=== PATIENT | male | born 1990 | race African-American/Black ===

== ENCOUNTER 2024-12-18 00:41 | Emergency (ER) | payer SELFPAY ==
[2024-12-18] MEDS ORDERED: LIDOCAINE 2% W/EPI 1:200,000 MPF 20 ML VIAL IM ONE (00:54)
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
[2024-12-18 02:16] VITALS: BP 130/81; TEMP 98.1; O2SAT 98
== END 2024-12-18 01:59 | disposition home or self-care (01) ==
LOC: ER 00:41
DX: S01.81XA Laceration without foreign body of other part of head, initial encounter (principal); W22.8XXA Striking against or struck by other objects, initial encounter
CPT/HCPCS: 12011; 99284